=== PATIENT | male | born 1975 | race Caucasian/White ===

== ENCOUNTER 2018-03-17 09:50 | Inpatient (IN) ==
--- NOTE | 2018-03-16 20:44 | Discharge Summary ---
<Esteban Dhlilon - Last Filed: 03/17/18 10:49> Orders not resulted at time of discharge: Pending orders 03/17/18 00:01 XR knee RT 1-2V [XR] Routine H/H [Hemoglobin and Hematocrit] [HEME] Routine 03/17/18 10:28 US anesthesia pain block [US] Routine Date of Encounter: 03/17/18 - Discharge Diagnosis (1) Morbid obesity with BMI of 40.0-44.9, adult Priority: Secondary Status: Chronic (2) Arthritis of knee, right Priority: Primary Status: Chronic (3) DMII (diabetes mellitus, type 2) Priority: Secondary Status: Chronic Qualifiers: Diabetes mellitus residential insulin use: with residential use Diabetes mellitus complication status: without complication Qualified Code(s): E11.9 - Type 2 diabetes mellitus without complications; Z79.4 - long term care administrator (current) use of insulin (4) Status post total knee replacement, right Priority: Primary Status: Acute (5) Asthma Priority: Secondary Status: Chronic Qualifiers: Asthma severity: unspecified severity Asthma persistence: unspecified Asthma complication type: unspecified Qualified Code(s): J45.909 - Unspecified asthma, uncomplicated (6) Chronic pain Priority: Secondary Status: Chronic Qualifiers: Chronic pain type: other chronic pain Qualified Code(s): G89.29 - Other chronic pain (7) HTN (hypertension) Priority: Secondary Status: Chronic Qualifiers: Hypertension type: essential hypertension Qualified Code(s): I10 - Essential (primary) hypertension - Hospital Course Hospital course: Mr. Franklin is a 42 year old male - Time Spent with Patient Total time spent providing and/or coordinating discharge services: - Discharge Medications Home Medications: Aspirin Enteric Coated [Aspirin EC] 325 mg PO BID #20 tablet. 03/16/18 [Rx] Albuterol Sulfate [Ventolin Hfa] 2 puff IH Q4H PRN 03/17/18 [History] Carvedilol [Coreg] 25 mg PO BID 03/17/18 [History] Celecoxib [Celebrex] 200 mg PO BID 03/17/18 [History] Citalopram [CeleXA] 20 mg PO DAILY 03/17/18 [History] Ibuprofen 800 mg PO QID PRN 03/17/18 [History] Multivitamin [One Daily Multivitamin] 1 each PO DAILY 03/17/18 [History] NIFEdipine [Nifedipine ER] 30 mg PO DAILY 03/17/18 [History] OxyCODONE Immed Rel [Roxicodone 5 MG] 5 mg PO Q6HR PRN 7 Days #28 tablet [Rx] Pantoprazole Sodium 40 mg PO DAILY 03/17/18 [History] Pioglitazone [Actos] 30 mg PO DAILY 03/17/18 [History] Tizanidine HCl [Zanaflex] 4 mg PO TID PRN 03/17/18 [History] clonazePAM [Clonazepam] 0.5 mg PO DAILY 03/17/18 [History] hydrOXYzine pamoate [HydrOXYzine Pamoate] 25 mg PO HS 03/17/18 [History] Allergies/Adverse Reactions: 3 Allergy/AdvReac Type Severity Reaction Status Date / Time metoclopramide [From Reglan] Allergy See Verified 03/17/18 10:31 Comments Primary care physician: Praish Wolfe - Patient Status Disposition: Home Health Service Condition: Good - Discharge Instructions Instructions: Total Knee Replacement (DC) Follow Up With: Parish Wolfe [Primary Care Provider] - 03/24/18 9:30 am <Tracey Shen - Last Filed: 03/18/18 16:11> Date of Encounter: 03/18/18 Time of Encounter: 16:08 - Discharge Diagnosis (1) Arthritis of knee, right Priority: Primary Status: Chronic (2) Status post total knee replacement, right Priority: Primary Status: Acute Comments: Opsite dressing, leave intact until first post-operative visit. If dressing becomes >50% saturated, contact office, remove dressing and place appropriate dressing in its place. Do not allow for dressing to get wet. Zipline in place, plan to remove at post-operative day #14-16. Total Joint Precautions x 6 weeks Apply cold therapy wrap 3-6x/day for 20 minutes at a time. Encourage ambulation throughout the day Use Incentive spirometer 10x/hour. Elevate affected extremity above heart as tolerated. Brace: Wear knee immobilizer at night until first post-operative appt. ~ (3) Chronic pain Priority: Secondary Status: Chronic Qualifiers: Chronic pain type: other chronic pain Qualified Code(s): G89.29 - Other chronic pain (4) Obesity Priority: Secondary Status: Chronic Qualifiers: Obesity type: due to excess calories Obesity classification: adult class 3 (BMI >= 40) Serious obesity comorbidity presence: without serious comorbidity Body mass index: BMI 40.0-44.9 Qualified Code(s): E66.01 - Morbid (severe) obesity due to excess calories; Z68.41 - Body mass index (BMI) 40.0-44.9, adult (5) HTN (hypertension) Priority: Secondary Status: Chronic Qualifiers: Hypertension type: essential hypertension Qualified Code(s): I10 - Essential (primary) hypertension (6) DMII (diabetes mellitus, type 2) Priority: Secondary Status: Chronic Qualifiers: Diabetes mellitus residential insulin use: with residential use Diabetes mellitus complication status: without complication Qualified Code(s): E11.9 - Type 2 diabetes mellitus without complications; Z79.4 - long term care administrator (current) use of insulin (7) Asthma Priority: Secondary Status: Chronic Qualifiers: Asthma severity: unspecified severity Asthma persistence: unspecified Asthma complication type: unspecified Qualified Code(s): J45.909 - Unspecified asthma, uncomplicated - Hospital Course Hospital course: Mr. Franklin is a 42 year old male, status post Right TKR- with a history of Suboxone use - currently not taking it. Patient had uneventful postoperative course. Stable for discharge. Patient seen at bedside, without complaints. A&O x 3 Afebrile, vital signs stable. Vital Signs Temp Pulse Resp BP Pulse Ox 03/18/18 15:10 97.9 F 106 17 146/81 99 03/18/18 10:52 97.4 F L 80 17 136/51 96 03/18/18 08:31 96 03/18/18 07:29 97.5 F L 74 17 129/77 96 03/18/18 04:00 97.9 F 72 16 115/71 95 03/17/18 23:53 97.9 F 82 16 158/82 94 03/17/18 19:06 98.3 F 95 16 120/70 94 03/17/18 18:12 98.2 F 93 135/87 95 03/17/18 17:10 98.3 F 91 12 139/94 93 Intake and Output 03/18/18 03/18/18 03/18/18 07:59 15:59 23:59 Intake Total 30 / 30 Output Total 400 / 400 Balance -370 / -370 Intake: IV Fluids Ancef Syringe 3,000 MG/30 ML 3, 30 / 30 000 mg In 30 ml @ 200 mls/hr IVPB Q8HR KENDAL Rx#:[id number] Output: Urine 400 / 400 Other: # Voids 1 Blood Glucose* 144 102 Labs reviewed. H/H - stable, asymptomatic Abnormal Labs, Last 24 hours 03/18/18 03/18/18 03/18/18 11:08 07:32 01:31 Hgb Hct Glucose 167 H POC Glucose 187 H 144 H 03/18/18 03/17/18 03/17/18 01:31 20:46 14:45 Hgb 12.0 L Hct 36.7 L Glucose POC Glucose 215 H 191 H Pain control: adequate, OK for Oxycodone 1-2 weeks, then will resume Suboxone patch. Participating in PT. All questions and concerns addressed. Educated on use of incentive spirometer. Encouraged ambulation and proper hydration. Patient educated on post-operative restrictions and post-operative care. Assessment and plan: Continue with postoperative care Discharge plan: Home with , discharge today. - Time Spent with Patient Total time spent providing and/or coordinating discharge services: Date of admission: 03/17 Primary care physician: Parish Wolfe Discharging clinician: Tracey Shen Anticipated date of discharge: 03/18/18 - Patient Status Functional capacity at discharge: uses cane/walker Overall status at discharge: patient is progressing back to baseline
[2018-03-17] MEDS ORDERED: CeFAZolin Syr 3,000MG/30 ML 3,000 MG/30 ML SYRINGE IVPB ONE (10:06)
[2018-03-17] MEDS ORDERED: Albuterol 2.5 MG/3 ML NEBULIZER IH ONE (10:06)
[2018-03-17] MEDS ORDERED: Ringers Solution, Lactated 1,000 ML IVC SCH (10:15)
[2018-03-17] MEDS ORDERED: Famotidine 20 MG/2 ML VIAL IVP ONE (10:27)
[2018-03-17] MEDS ORDERED: Acetaminophen IV 1,000 MG/100 ML INFUS..BTL IVPB ONE (10:27)
[2018-03-17] MEDS ORDERED: Pregabalin 75 MG CAPSULE PO ONE (10:27)
[2018-03-17] MEDS ORDERED: Celecoxib 100 MG CAPSULE PO ONE (10:28)
--- NOTE | 2018-03-17 10:31 | Anesthesia Evaluation PreOp ---
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 03/16/18 [Rx] 3 Allergy/AdvReac Type Severity Reaction Status Date / Time metoclopramide [From Reglan] Allergy See Verified 03/13/18 15:48 Comments - Meds/Allergy Pre-op Review Medications Reviewed: Yes Allergies Reviewed: Yes Beta Blockers on Current Med List: Yes (Coreg today 629) Anesthesia Results - Labs Laboratory Tests 03/13/18 03/13/18 16:00 16:00 Hgb 12.4 L Hct 38.6 Plt Count 270 Sodium 138 Potassium 3.8 BUN 8 Creatinine 1.03 - Imaging EKG: report reviewed (SR) Anesthesia Exam O2 Sat Height 1.85 m Height 1.85 m Weight 150.139 kg Weight 150.139 kg O2 Sat by Pulse Oximetry 94 Vital Signs Temp Pulse Resp BP Pulse Ox 98.7 F 92 18 119/80 94 03/17/18 10:22 03/17/18 10:22 03/17/18 10:22 03/17/18 10:22 03/17/18 10:22 Height: 6'1 Weight: 331 lbs NPO (# of Hours): MN Pain Scale: 0 - HEENT Pupil (Motor): Pupils equal, EOMI Mallampati: III Teeth: Edentulous Oral Opening: Less than or equal to 3 - SERVICE BAR CASHIER LOC: Oriented SERVICE BAR CASHIER Motor: Normal RUE, Normal LUE, Normal RLE, Normal LLE, Normal Face SERVICE BAR CASHIER Sensory: Normal: RUE, LUE, RLE, LLE, Face - Cardiac Rhythm: Regular Murmur: None JVD: No Carotid Bruit: No - Pulmonary Breath Sounds: bilateral Clear Respiratory Effort: Symmetrical Anesthesia Assess/Plan ASA Score: 3 (HTN DM MO) Modified Kadi Scale for Level of Consciousness: Cooperative, oriented, and tranquil Anesthetic Plan: General, Regional Monitoring Plan: Standard Monitors Recovery Plan: PACU (Discussed GA, RA, agrees to proceed)
[2018-03-17] MEDS ORDERED: *HR* Propofol 200 MG/20 ML VIAL IVP ONE (10:32)
[2018-03-17] MEDS ORDERED: Ondansetron 4 MG/2 ML VIAL ONE (10:32)
[2018-03-17] MEDS ORDERED: *HR* Midazolam HCl 2 MG/2 ML VIAL ONE ×3 (10:32→11:41)
[2018-03-17] MEDS ORDERED: Dexamethasone 4 MG/ML VIAL ONE (10:32)
[2018-03-17] MEDS ORDERED: *HR* FentaNYL (PF) 100 MCG/2 ML VIAL ONE (10:32)
[2018-03-17] MEDS ORDERED: Lidocaine -MPF 2% 2 ML VIAL ONE (10:33)
[2018-03-17] MEDS ORDERED: *HR* Labetalol 20 MG/4 ML SYRINGE IVP PRN (10:35)
[2018-03-17] MEDS ORDERED: *HR* Promethazine 25 MG/ML VIAL IVP PRN (10:35)
--- NOTE | 2018-03-17 10:48 | History & Physical Report ---
Date of Encounter: 03/17/18 Time of Encounter: 10:47 24 Hour HP Update - Instructions Instructions: If the History and Physical is less than 30 days old and was completed prior to A.M. admission and or procedure and has NOT been updated on calendar day of procedure please complete this update prior to performing procedure. - Update Patient reports changes in Medical Condition: No Changes in examination, assessment, or condition: No Changes in Medication: No Preop tests/diagnostics Reviewed: Yes Surgery Remains Indicated: Yes Consent for Planned Operative Procedure(s) Verified: Yes - Pre-Operative Checklist Preoperative Checklist Indicated: No Prophylactic Antibiotic Ordered: Yes Is VTE Prophylaxis Indicated?: Yes
[2018-03-17] MEDS ORDERED: Bupivacaine/Clonidine Syringe 1 EACH SYRINGE ONE (11:13)
[2018-03-17] MEDS ORDERED: ROPIVACAINE HCL/PF 0.5% 30 ML VIAL ONE (11:13)
--- NOTE | 2018-03-17 11:53 | Anesthesia Procedures ---
Date of Encounter: 03/17/18 Time of Encounter: 10:30 Procedures: Anesthesia - Nerve Block Procedure Date: 03/17/18 Time: 11:30 Pre-op Diagnosis: Arthropathy Rt Knee Surgical Procedure: TKA Checklist: Correct Patient Identifier Correct side: Right Blood Thinner: No Monitor Applied: EKG, BP, Pulse Oximetry Supplemental Oxygen via Nasal Cannula (L/min): 2 Sedation: Versed (mg): 6 Sedation: Fentanyl (mcg): 100 Indication: Post Op Analgesia Pre-op Neuro Deficits: No Block Type: Femoral, Other (IPACK) Catheter placed: No Depth at skin (cm): 5 Sterile Technique: Yes Ultrasound used: Yes Anatomy identified: Yes Visual spread of Local: Yes Neuro Stimulation: No Blood on Needle Aspiration: No Smooth Injection of Local: Yes Pain with Injection of Local: No Prep: Chlorhexadine Needle: 21 x 100 mm Stimuplex Local: 0.25% Bupivicaine w/Clonidine 20 mcg/cc, Ropivacaine Volume (cc): 30 Number of Attempts: 1 Complications: None/effective block Vitals: Vital Signs/O2 Sat/Glucose, Most Current Temp Pulse Resp BP Pulse Ox 03/17/18 11:49 97 17 118/75 94 03/17/18 11:29 99 16 134/84 95 03/17/18 11:18 108 18 114/82 94 03/17/18 10:22 98.7 F 92 18 119/80 94 03/17/18 10:12 18 119/80 94
[2018-03-17] MEDS ORDERED: Lidocaine -MPF 4% 5 ML AMPUL ONE (11:57)
--- NOTE | 2018-03-17 13:12 | Orthopedic Operative Note ---
Date of procedure: 03/17/18 Pre-op diagnosis: Right knee arthritis Procedure: Procedure: Right robotic-assisted Total knee replacement Estimated blood loss: 200 cc Hardware: Press-fit Metal and polyethylene replacement. Rian Femur: 5 Tibia: 5 PS insert: 11 Patella: 39 Exam Under anesthesia: 5 degree flexion contracture and 5 degree varus as calculated by the robot full flexion and positive anterior instability Procedural Notes: Grade 3 arthritic changes medial compartment patellofemoral joint, incompetent ACL graft Operative procedure: The patient was brought to the operating room and placed on the operating room table. After general anesthesia was administered the operative knee was examined. Findings were noted in the exam under anesthesia. The operative extremity was prepped and draped in sterile surgical fashion. The patient received IV antibiotics prior to skin incision. A standard midline incision was made centered over the patella. The incision was made through the skin and subcutaneous tissue. A medial parapatellar tendon approach was performed. Care was taken to preserve tissue along the medial aspect of the patella. And to protect the patella tendon. The deep MCL was released off the medial tibia. The infra patella fat pad was excised. The patella was everted and cut was made at the level of the insertion of the quadriceps and patella tendon. The patella was sized the guide was seated and the lug holes are drilled. Knee was brought into flexion. Patient noted to have grade 3 changes medial compartment and patellofemoral joint. Steinmann pins were placed in the tibia and the femur for the tibial and femoral arrays respectively. Checkpoints were also placed in the tibia and the femur for calculation purposes. The knee including the femur and the tibial registered. Osteophytes, lax ACL and PCL were excised at this point. Extension and flexion were assessed with a valgus stress components were adjusted on the computer to balance the knee. Femoral cuts were made first with robotic assistance, these included the anterior cut posterior cuts chamfer cuts. Tibial cut was then performed with robotic assistance as well. Bone fragments were removed, as well as the medial and lateral meniscus. The size 5 femoral guide was seated box cut was made lug holes are drilled. The size 5 tibial tray was seated and prepared with the fin cutter. Trial reduction with the 11 PS Kristine revealed extension of 0 degree and 2 degrees varus full flexion. No varus valgus instability. Trial reduction revealed excellent patella tracking. All trial components were removed all bony surfaces were irrigated. The Tibia was seated followed by the femur, The selected Kristine size was seated and secured patella. Patient had similar findings for motion and stability. The knee was closed by the PA. The knee was then irrigated out with 2 L of pulse irrigation. The extensor mechanism was closed with #2 FiberWire suture and #2 PDS suture. The subcutaneous tissue was then irrigated and closed deep with #1 PDS suture superficially with 0 PDS suture and skin was closed with zip tie The patient was then placed in a sterile dressing and a postoperative brace extubated and transferred to recovery room in stable condition. Anesthesia: GETA Surgeon: Esteban Dhillon Was there an sales assistants and salespersons present: No Estimated blood loss (cc): 200 Condition: stable Disposition: PACU
[2018-03-17] MEDS: *HR* HYDROmorphone (PF) 1 MG/ML SYRINGE IVP PRN ×2 (14:00→14:15)
[2018-03-17 14:46] LABS: Hematocrit 36.9 % (37.5-50.1); Hemoglobin 12.3 g/dL (12.9-16.9)
[2018-03-17] MEDS ORDERED: traMADol 50 MG TABLET PO PRN (14:58)
[2018-03-17] MEDS ORDERED: Sennosides 8.6 MG TABLET PO PRN (14:58)
[2018-03-17] MEDS ORDERED: Naloxone 0.4 MG/ML INJ IVP PRN (14:58)
[2018-03-17] MEDS ORDERED: *HR* OxyCODONE/APAP 5/325 TABLET PO PRN (14:58)
[2018-03-17] MEDS ORDERED: Ondansetron 4 MG/2 ML VIAL IVP PRN (14:58)
[2018-03-17] MEDS ORDERED: Temazepam 15 MG CAPSULE PO PRN (14:58)
[2018-03-17] MEDS ORDERED: MOM Conc 10 ML UD.LIQ PO PRN (14:58)
[2018-03-17] MEDS: *HR* OxyCODONE Immed Rel 5 MG TABLET PO PRN ×2 (15:38→19:41)
[2018-03-17] MEDS: *HR* Enoxaparin 30 MG/0.3 ML SYRINGE SQ SCH (17:22)
[2018-03-17] MEDS ORDERED: Ethanol\\Acetic Acid\\Na Ace\\Ben 1,000 ML IRRIG.SOLN IR ONE (17:29)
[2018-03-17] MEDS ORDERED: *HR* Enoxaparin 30 MG/0.3 ML SYRINGE SQ SCH (18:00)
[2018-03-17] MEDS: CeFAZolin Syr 3,000MG/30 ML 3,000 MG/30 ML SYRINGE IVPB SCH (18:09)
[2018-03-17] MEDS ORDERED: tiZANidine 4 MG TABLET PO PRN (20:11)
[2018-03-17] MEDS ORDERED: *HR* Dextrose 50 % in Water (Syg) 50 ML SYRINGE IVP PRN (20:12)
[2018-03-17] MEDS ORDERED: Dextrose Gel 15 GM/37.5 ML TUBE PO PRN ×2 (20:12)
[2018-03-17] MEDS ORDERED: D5% in Water 1,000 ML IVC PRN (20:12)
[2018-03-17] MEDS ORDERED: Insulin LISPRO 300 UNITS/3 ML VIAL SQ SCH (21:00)
[2018-03-17] MEDS ORDERED: hydrOXYzine pamoate 25 MG CAPSULE PO SCH (21:00)
[2018-03-17] MEDS: Celecoxib 200 MG CAPSULE PO SCH (22:00)
[2018-03-18] MEDS: *HR* OxyCODONE Immed Rel 5 MG TABLET PO PRN ×4 (01:36→15:10)
[2018-03-18] MEDS: CeFAZolin Syr 3,000MG/30 ML 3,000 MG/30 ML SYRINGE IVPB SCH (01:37)
[2018-03-18 01:53] LABS: Hematocrit 36.7 % (37.5-50.1)
[2018-03-18 02:10] LABS: BUN/Creatinine Ratio 7 (6-26); Blood Urea Nitrogen 7 mg/dL (6-20); Calcium 9.3 mg/dL (8.6-10.3); Carbon Dioxide 29 mEq/L (23-29); Chloride 101 mEq/L (98-107); Glucose 167 mg/dL (70-105); Osmolality,Calculated 286 (280-300); Potassium 4.7 mEq/L (3.5-5.1); Sodium 137 mEq/L (136-145); eGFR For Non-African Americans > 60 (> 60)
[2018-03-18] MEDS: *HR* Enoxaparin 30 MG/0.3 ML SYRINGE SQ SCH (05:32)
--- NOTE | 2018-03-18 06:44 | Orthopedics Progress Note ---
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 of insulin (4) Status post total knee replacement, right Current Visit: No Status: Acute (5) Asthma Current Visit: No Status: Chronic Qualifiers: Asthma severity: unspecified severity Asthma persistence: unspecified Asthma complication type: unspecified Qualified Code(s): J45.909 - Unspecified asthma, uncomplicated (6) Chronic pain Current Visit: No Status: Chronic Qualifiers: Chronic pain type: other chronic pain Qualified Code(s): G89.29 - Other chronic pain (7) HTN (hypertension) Current Visit: No Status: Chronic Qualifiers: Hypertension type: essential hypertension Qualified Code(s): I10 - Essential (primary) hypertension Subjective Interval history: Patient was seen this morning doing well without complaints. Afebrile vital signs stable. Operative extremity: Neurovascularly intact Dressing clean dry and intact Calves nontender Assessment and plan: Continue with postoperative care hematocrit 36 Objective Vital signs: Vital Signs Temp Pulse Resp BP Pulse Ox 03/18/18 04:00 97.9 F 72 16 115/71 95 03/17/18 23:53 97.9 F 82 16 158/82 94 03/17/18 19:06 98.3 F 95 16 120/70 94 03/17/18 18:12 98.2 F 93 135/87 95 03/17/18 17:10 98.3 F 91 12 139/94 93 03/17/18 15:44 99.0 F 100 168/99 95 03/17/18 14:49 98.7 F 97 18 152/104 92 03/17/18 14:24 98.9 F 87 18 155/100 94 03/17/18 14:14 85 18 159/100 96 03/17/18 14:04 84 16 150/100 95 03/17/18 13:54 90 18 133/89 94 10/08/18 13:44 97.0 F L 99 16 137/100 96 03/17/18 11:49 97 17 118/75 94 03/17/18 11:29 99 16 134/84 95 03/17/18 11:18 108 18 114/82 94 03/17/18 10:22 98.7 F 92 18 119/80 94 03/17/18 10:12 18 119/80 94 Intake and Output 03/17/18 03/17/18 03/18/18 15:59 23:59 07:59 Intake Total 30 / 30 Output Total 200 / 200 800 / 800 400 / 400 Balance -200 / -200 -770 / -770 -400 / -400 Intake: IV Fluids 30 / 30 Ancef Syringe 3,000 MG/30 ML 3, 30 / 30 000 mg In 30 ml @ 200 mls/hr IVPB Q8HR KENDAL Rx#:[id number] Output: Urine 800 / 800 400 / 400 Estimated Blood Loss 200 / 200 Other: # Voids 1 Weight 150.139 kg Blood Glucose* 191 215 - Labs CBC & BMP: 03/18/18 01:31 03/18/18 01:31 Labs: Abnormal lab results Hgb 12.0 g/dL (12.9-16.9) L 03/18/18 01:31 Hct 36.7 % (37.5-50.1) L 03/18/18 01:31 Glucose 167 mg/dL (70-105) H 03/18/18 01:31 POC Glucose 215 mg/dL (70-99) H 03/17/18 20:46 Consult Discharge Plan - Plan Referrals: Parish Wolfe [Primary Care Provider] -
[2018-03-18] MEDS: Ringers Solution, Lactated 1,000 ML IVC SCH ×2 (07:33→07:34)
[2018-03-18] MEDS: Celecoxib 200 MG CAPSULE PO SCH (07:55)
[2018-03-18] MEDS: Insulin LISPRO 300 UNITS/3 ML VIAL SQ SCH ×2 (07:57→12:19)
[2018-03-18] MEDS ORDERED: clonazePAM 0.5 MG TABLET PO SCH (09:00)
[2018-03-18] MEDS ORDERED: NIFEdipine XL (24 HR) 30 MG TAB.ER.24 PO SCH (09:00)
[2018-03-18] MEDS ORDERED: *HR* Pioglitazone 30 MG TABLET PO SCH (09:00)
[2018-03-18] MEDS ORDERED: Multivit/Ca/Min/Fe/FA 1 TAB TABLET PO SCH (09:00)
[2018-03-18 15:11] VITALS: BP 146/81
--- NOTE | 2018-03-18 16:13 | Physician Discharge Referral ---
Home Health/Hosp Referral Info Transfer to: Home Health Provider in Charge Post Discharge: PCP - Diagnosis (1) Arthritis of knee, right Priority: Primary Status: Chronic (2) Status post total knee replacement, right Priority: Primary Status: Acute (3) Chronic pain Status: Chronic (4) Obesity Status: Chronic (5) HTN (hypertension) Status: Chronic (6) DMII (diabetes mellitus, type 2) Status: Chronic (7) Asthma Status: Chronic - Respiratory Orders None Smoking Cessation: Smoking cessation has been advised. For more information, call the [place] Tobacco Quit Line at 0-424-ZQMI-NOW. - Diet/Nutrition Diet/Nutrition Orders: Regular - Activity Activity Orders: Up ad ita, Ambulate, Walker - Services Needed Following services are medically necessary services: Nursing, Home Health Aide, Physical Therapy, Occupational Therapy Other Treatments: Opsite dressing, leave intact until first post-operative visit. If dressing becomes >50% saturated, contact office, remove dressing and place appropriate dressing in its place. Do not allow for dressing to get wet. Zipline in place, plan to remove at post-operative day #14-16. Total Joint Precautions x 6 weeks Apply cold therapy wrap 3-6x/day for 20 minutes at a time. Encourage ambulation throughout the day Use Incentive spirometer 10x/hour. Elevate affected extremity above heart as tolerated. Brace: Wear knee immobilizer at night until first post-operative appt. ~ - Transfer Medications Home Medications: Aspirin Enteric Coated [Aspirin EC] 325 mg PO BID #20 tablet. 03/16/18 [Rx] Albuterol Sulfate [Ventolin Hfa] 2 puff IH Q4H PRN 03/17/18 [History] Carvedilol [Coreg] 25 mg PO BID 03/17/18 [History] Celecoxib [Celebrex] 200 mg PO BID 03/17/18 [History] Citalopram [CeleXA] 20 mg PO DAILY 03/17/18 [History] Ibuprofen 800 mg PO QID PRN 03/17/18 [History] Multivitamin [One Daily Multivitamin] 1 each PO DAILY 03/17/18 [History] NIFEdipine [Nifedipine ER] 30 mg PO DAILY 03/17/18 [History] OxyCODONE Immed Rel [Roxicodone 5 MG] 5 mg PO Q6HR PRN 7 Days #28 tablet [Rx] Pantoprazole Sodium 40 mg PO DAILY 03/17/18 [History] Pioglitazone [Actos] 30 mg PO DAILY 03/17/18 [History] Tizanidine HCl [Zanaflex] 4 mg PO TID PRN 03/17/18 [History] clonazePAM [Clonazepam] 0.5 mg PO DAILY 03/17/18 [History] hydrOXYzine pamoate [HydrOXYzine Pamoate] 25 mg PO HS 03/17/18 [History] Allergies/Adverse Reactions: 3 Allergy/AdvReac Type Severity Reaction Status Date / Time metoclopramide [From Reglan] Allergy See Verified 03/17/18 10:31 Comments Certification: Further, I certify that my clinical findings support that this patient is homebound (i.e. absences from home require considerable and taxing effort and are for medical reasons or mu-ism services or infrequently or short duration when for other reasons) because: Homebound Reason: Post-surgery restriction and or conditions limit ability to leave home, Leaving home requires considerable and taxing effort due to condition Attestation: My signature below is to certify that this patient is under my care and that I, or nurse practitioner, or a physician's assistant pastry chef working with me, has a face-to -face encounter with this patient.
== END 2018-03-18 16:43 | disposition home health service (06) | DRG 302 ==
LOC: SAMDAY 09:50 → 3NENU 15:24
PROVIDERS: ADMIT Orthopaedic Surgery; ATTEND Orthopaedic Surgery